=== PATIENT | male | born 1990 | race Hispanic/Latino ===

== ENCOUNTER 2020-04-11 08:43 | Emergency (ER) | payer SELFPAY ==
[2020-04-11] MEDS ORDERED: Ondansetron ODT 4 MG TAB ONE (09:05)
[2020-04-11 12:50] LABS: SARS-CoV-2 PCR by NAA Not Detected (NotDetected)
== END 2020-04-11 10:12 | disposition home or self-care (01) ==
LOC: ERS 08:43
DX: B34.2 Coronavirus infection, unspecified (principal)
CPT/HCPCS: 87635; 99283; Q0162; U0003; U0005